=== PATIENT | male | born 1960 | race African-American/Black ===

== ENCOUNTER 2016-06-21 12:18 | Inpatient (IN) | payer BC ==
[2016-06-21 13:59] VITALS: BMI 24.3
--- NOTE | 2016-06-21 15:25 | HP ---
CIWA Score - CIWA Score Nausea/Vomitin-Mild Nausea/No Vomiting Muscle Tremors: 4-Moderate,w/Arms Extend Anxiety: 4-Mod. Anxious/Guarded Agitation: 4-Moderately Restless Paroxysmal Sweats: 3 Orientation: 0-Oriented Tacttile Disturbances: 0-None Auditory Disturbances: 0-None Visual Disturbances: 0-None Headache: 1-Very Mild CIWA-Ar Total Score: 17 Admission ROS S - HPI Chief Complaint: i need detox Allergies/Adverse Reactions: Allergies Allergy/AdvReac Type Severity Reaction Status Date / Time Fish Containing Products Allergy Severe Rash Verified 06/21/16 14:49 penicillin G Allergy Severe Rash Verified 06/21/16 14:49 History of Present Illness: pt is a 56yr old male with a history of alcohol and cocaine dependence seeking detox for treatment. Exam Limitations: No Limitations - Ebola screening Have you traveled outside of the country in the last 21 days: No Have you had contact with anyone from an Ebola affected area: No Have you been sick,other than usual withdrawal symptoms: No Do you have a fever: No - Review of Systems Constitutional: Diaphoresis, Night Sweats, Changes in sleep, Unintentional Wgt. Loss EENT: reports: Tearing Respiratory: reports: No Symptoms reported Cardiac: reports: No Symptoms Reported GI: reports: Nausea, Poor Appetite, Poor Fluid Intake, Vomiting, Indigestion : reports: No Symptoms Reported Musculoskeletal: reports: Back Pain Integumentary: reports: Flushing, Sweating Neuro: reports: Headache, Tingling, Tremors Endocrine: reports: Excessive Sweating, Flushing, Intolerance to Cold, Intolerance to Heat Hematology: reports: No Symptoms Reported Psychiatric: reports: Judgement Intact, Mood/Affect Appropiate, Orientated x3, Agitated, Anxious Other Systems: Reviewed and Negative Patient History - Patient Medical History Hx Anemia: No Hx Asthma: Yes Hx Chronic Obstructive Pulmonary Disease (COPD): No Hx Cancer: No Hx Cardiac Disorders: No Hx Congestive Heart Failure: No Hx Hypertension: Yes (no meds.) Hx Hypercholesterolemia: No Hx Pacemaker: No HX Cerebrovascular Accident: No (2007 right side stoke. ) Hx Seizures: Yes (Last seizure was in 2014) Hx Dementia: No Hx Diabetes: Yes (DM2) Hx Gastrointestinal Disorders: No Hx Liver Disease: No Hx Genitourinary Disorders: No Hx Sexually Transmitted Disorders: No Hx Renal Disease (ESRD): No Hx Thyroid Disease: No Hx Human Immunodeficiency Virus (HIV): Yes (HIV 1998.. last CD4 400) Hx Hepatitis C: No Hx Depression: Yes Hx Suicide Attempt: No (denies) Hx Bipolar Disorder: No Hx Schizophrenia: Yes - Patient Surgical History Past Surgical History: No Hx Neurologic Surgery: No Hx Cataract Extraction: No Hx Cardiac Surgery: No Hx Lung Surgery: No Hx Breast Surgery: No Hx Breast Biopsy: No Hx Abdominal Surgery: No Hx Appendectomy: No Hx Cholecystectomy: No Hx Genitourinary Surgery: No Hx Section: No Hx Orthopedic Surgery: No Other Surgical History: collar bone fracture 2007, no surgery Anesthesia Reaction: No - PPD History Previous Implant?: Yes Documented Results: Positive w/proof Implanted On Prior [facility] Admission?: Yes Date: 04/05/14 Results: 0 MM PPD to be Administered?: Yes - Reproductive History Patient is a Female of Child Bearing Age (11 -55 yrs old): No - Smoking Cessation Smoking history: Current every day smoker Have you smoked in the past 12 months: Yes Aproximately how many cigarettes per day: 40 Hx Chewing Tobacco Use: No Initiated information on smoking cessation: Yes 'Breaking Loose' booklet given: 06/21/16 - Substance & Tx. History Hx Alcohol Use: Yes Hx Substance Use: Yes Substance Use Type: Alcohol, Cocaine Hx Substance Use Treatment: Yes - Substances Abused Alcohol Route: Oral Frequency: Daily Amount used: 1 AND 1/2 PINTS VODKA Age of first use: 25 Date of Last Use: 06/20/16 Crack Route: Smoking Frequency: Daily Amount used: 5 BAGS Age of first use: 27 Date of Last Use: 06/20/16 Family Disease History - Family Disease History Family History: Denies Admission Physical Exam BHS - Vital Signs Vital Signs: Vital Signs - 24 hr 06/21/16 13:53 Temperature 97 F L Pulse Rate 69 Respiratory 20 Rate Blood Pressure 147/90 - Physical General Appearance: Yes: Appropriately Dressed, Moderate Distress, Tremorous, Irritable, Sweating, Anxious HEENTM: Yes: Hearing grossly Normal, Nasal Congestion, Rhinorrhea Respiratory: Yes: Lungs Clear, Normal Breath Sounds, No Respiratory Distress Neck: Yes: No masses,lesions,Nodules Breast: Yes: Within Normal Limits Cardiology: Yes: Regular Rhythm, Regular Rate, S1, S2 Abdominal: Yes: Normal Bowel Sounds, Non Tender, Soft Genitourinary: Yes: Within Normal Limits Back: Yes: Normal Inspection Musculoskeletal: Yes: full range of Motion, Back pain, Joint Stiffness Extremities: Yes: Normal Capillary Refill, Normal Inspection, Non-Tender, Tremors Neurological: Yes: Fully Oriented, Alert, Normal Response Integumentary: Yes: Normal Color, Diaphoresis Lymphatic: Yes: Within Normal Limits - Diagnostic (1) Seizure disorder Current Visit: Yes Status: Chronic (2) Asthma Current Visit: Yes Status: Chronic Qualifiers: Asthma severity: mild intermittent Asthma complication type: uncomplicated Qualified Code(s): J45.20 - Mild intermittent asthma, uncomplicated (3) Cocaine dependence Current Visit: Yes Status: Chronic Qualifiers: Substance use status: uncomplicated Qualified Code(s): F14.20 - Cocaine dependence, uncomplicated (4) Diabetes type 2, uncontrolled Current Visit: Yes Status: Chronic Qualifiers: Diabetes mellitus complication status: without complication Diabetes mellitus snf insulin use: with adjunct faculty for medical terminology use Qualified Code(s): E11.65 - Type 2 diabetes mellitus with hyperglycemia; Z79.4 - intermodal customer service (current ) use of insulin (5) HIV disease Current Visit: Yes Status: Chronic Comment: since 1997. last CD4 count 400 (6) Hypertension Current Visit: Yes Status: Chronic Qualifiers: Hypertension type: essential hypertension Qualified Code(s): I10 - Essential (primary) hypertension Comment: non compliant (7) Nicotine dependence Current Visit: Yes Status: Chronic Qualifiers: Nicotine product type: cigarettes Substance use status: uncomplicated Qualified Code(s): F17.210 - Nicotine dependence, cigarettes, uncomplicated (8) Alcohol dependence with uncomplicated withdrawal Current Visit: Yes Status: Chronic Cleared for Admission S - Detox or Rehab [facility] Level of Care: Medically Managed Detox Regimen/Protocol: Librium [facility] Breath Alcohol Content Breath Alcohol Content: 0 Urine Drug Screen - Results Drug Screen Negative: Yes Urine Drug Screen Results: TOMAS-Cocaine
[2016-06-21] MEDS ORDERED: NICOTINE POLACRILEX 4 MG GUM BC PRN (15:36)
[2016-06-21] MEDS ORDERED: ACETAMINOPHEN 325 MG TABLET (FP) PO PRN (15:36)
[2016-06-21] MEDS ORDERED: MAGNESIUM CITRATE 300 ML BOTTLE PO PRN (15:36)
[2016-06-21] MEDS ORDERED: hydrOXYzine PAMOATE 50 MG CAPSULE (FP) PO PRN (15:36)
[2016-06-21] MEDS ORDERED: guaiFENesin/D-METHORPHAN HB 10 ML UNIT-DOSE CUPS PO PRN (15:36)
[2016-06-21] MEDS ORDERED: chlordiazePOXIDE HCL 25 MG CAPSULE PO PRN (15:36)
[2016-06-21] MEDS ORDERED: MAG HYDROX/AL HYDROX/SIMETH 30 ML UNIT-DOSE CUP PO PRN (15:36)
[2016-06-21] MEDS ORDERED: P-EPHED 60MG/TRIPROLIDI 2.5MG TABLET PO PRN (15:36)
[2016-06-21] MEDS ORDERED: MAGNESIUM HYDROX 2400MG/30ML ORAL SUSPENSION 30 ML CUP PO PRN (15:36)
[2016-06-21] MEDS ORDERED: MENTHOL/PHENOL 1 EACH UD MM PRN (15:36)
[2016-06-21] MEDS ORDERED: IBUPROFEN 400 MG TABLET (FP) PO PRN (15:36)
[2016-06-21] MEDS ORDERED: diphenhydrAMINE HCL 50 MG CAPSULE PO PRN (15:36)
[2016-06-21] MEDS ORDERED: ALBUTEROL SO4 6.7 GM HFA INHALER IH PRN (15:40)
[2016-06-21] MEDS ORDERED: chlordiazePOXIDE HCL 25 MG CAPSULE PO ONE (15:44)
[2016-06-21] MEDS: chlordiazePOXIDE HCL 25 MG CAPSULE PO SCH ×2 (16:57→22:26)
[2016-06-21] MEDS: INSULIN SLIDING SCALE (NOVOLOG) 1 VIAL SQ SCH (16:58)
--- NOTE | 2016-06-21 21:43 | PN ---
S Progress Note Note: 56 YEARS OLD MALE WITH INSULIN DEPENDENT DIABETES II REPORTS TAKING LANTUS 51 UNITS HS DAILY, LAST DOSE 06/17/16 HS FINGER STICK 141 HOLD INSULIN 51 UNITS FOR POSSIBLE REDUCED UNIT CONTINUE DETOX
[2016-06-21] MEDS: INSULIN DETEMIR 100 UNITS/ML MDV SQ SCH (22:00)
[2016-06-21] MEDS: THIAMINE HCL 100 MG TABLET (FP) PO SCH (22:25)
[2016-06-21] MEDS: levETIRAcetam 500 MG TABLET (FP) PO SCH (22:26)
[2016-06-22] MEDS: chlordiazePOXIDE HCL 25 MG CAPSULE PO SCH ×4 (05:42→22:11)
[2016-06-22] MEDS: EMTRICITABINE 200MG/TENOFOVIR 300MG PO SCH (07:45)
[2016-06-22] MEDS: ATAZANAVIR SO4 300 MG CAPSULE PO SCH (07:45)
[2016-06-22] MEDS: RITONAVIR 100 MG TABLET PO SCH (07:45)
[2016-06-22] MEDS: INSULIN SLIDING SCALE (NOVOLOG) 1 VIAL SQ SCH ×3 (07:45→17:28)
[2016-06-22 10:07] LABS: MCH 32.2 pg (25.7-33.7); MCHC 33.2 g/dl (32.0-35.9); MEAN CELL VOLUME 97.1 fl (80-96); MEAN PLT VOLUME 8.9 fl (7.5-11.1); PLATELET COUNT 191 K/MM3 (134-434); RDW 14.8 % (11.9-15.9); WHITE BLOOD COUNT 3.5 K/mm3 (4.0-10.0)
--- NOTE | 2016-06-22 10:13 | PN ---
S CIWA - CIWA Score Nausea/Vomitin-No Nausea/No Vomiting Muscle Tremors: 4-Moderate,w/Arms Extend Anxiety: 4-Mod. Anxious/Guarded Agitation: 4-Moderately Restless Paroxysmal Sweats: 1-Minimal Palms Moist Orientation: 0-Oriented Tacttile Disturbances: 3-Moderate Itch/Numb/Burn Auditory Disturbances: 0-None Visual Disturbances: 0-None Headache: 0-None Present CIWA-Ar Total Score: 16 BHS Progress Note (SOAP) Subjective: ANXIETY,SWEATS,TREMORS, INTERMITTENT SLEEP,FATIGUE. Objective: 06/22/16 10:13 Vital Signs Temperature 96.3 F L 06/22/16 09:46 Pulse Rate 75 06/22/16 09:46 Respiratory Rate 18 06/22/16 09:46 Blood Pressure 124/76 06/22/16 09:46 O2 Sat by Pulse Oximetry (%) Laboratory Last Values WBC 3.5 K/mm3 (4.0-10.0) L D 06/22/16 05:50 RBC 3.97 M/mm3 (4.00-5.60) L 06/22/16 05:50 Hgb 12.8 GM/dL (11.7-16.9) 06/22/16 05:50 Hct 38.5 % (35.4-49) 06/22/16 05:50 MCV 97.1 fl (80-96) H 06/22/16 05:50 MCHC 33.2 g/dl (32.0-35.9) 06/22/16 05:50 RDW 14.8 % (11.9-15.9) 06/22/16 05:50 Plt Count 191 K/MM3 (134-434) 06/22/16 05:50 MPV 8.9 fl (7.5-11.1) D 06/22/16 05:50 POC Glucometer 108 UNITS (()) 06/22/16 05:42 Assessment: 06/22/16 10:13 WITHDRAWAL SX Plan: CONTINUE DETOX
[2016-06-22] MEDS: levETIRAcetam 500 MG TABLET (FP) PO SCH ×2 (10:15→22:11)
[2016-06-22] MEDS: ASPIRIN 81 MG CHEWABLE TABLETS PO SCH (10:15)
[2016-06-22] MEDS: PRENATAL VITAMINS W/ FOLIC ACID TABLET (FP) PO SCH (10:15)
[2016-06-22] MEDS: NICOTINE 21 MG/24 HOURS TOPICAL PATCH TD SCH (10:16)
[2016-06-22 10:57] LABS: ALBUMIN 3.2 g/dl (3.4-5.0); ALK PHOS 125 U/L (45-117); ANION GAP 7 (8-16); BILIRUBIN,TOTAL 0.3 mg/dL (0.2-1.0); CALCIUM 8.1 mg/dL (8.5-10.1); CO2 24 mmol/L (21-32); CREATININE 0.7 mg/dL (0.7-1.3); GLUCOSE,RANDOM 121 mg/dL (74-106); SGOT/AST 45 U/L (15-37); SGPT/ALT 41 U/L (12-78); TOT PROT 9.5 g/dl (6.4-8.2)
--- NOTE | 2016-06-22 12:53 | EKG ---
Test Reason : Blood Pressure : / mmHG Vent. Rate : 065 BPM Atrial Rate : 065 BPM P-R Int : 190 ms QRS Dur : 084 ms QT Int : 412 ms P-R-T Axes : 056 046 046 degrees QTc Int : 428 ms NORMAL SINUS RHYTHM NORMAL ECG NO PREVIOUS ECGS AVAILABLE Confirmed by NATALI GARCÍA MD ([id number]) on 06/22/2016 12:53:25 PM Referred By: Confirmed By:NATALI GARCÍA MD
--- NOTE | 2016-06-22 14:36 | CONSULT ---
[facility] Psychiatric Consult - Data Date of interview: 06/22/16 Admission source: [facility] Identifying data: Readmission to [facility] for Pedro Gilliam who is a 56 y/o AA male seeking detox treatment on for alcohol and cocaine (crack) dependence.He is single without children,domiciled (lives in a [place] setting), unemployed and supported on SSI benefits. Substance Abuse History: - Smoking Cessation. Smoking history: Current every day smoker. Have you smoked in the past 12 months: Yes. Aproximately how many cigarettes per day: 40. Hx Chewing Tobacco Use: No. Initiated information on smoking cessation: Yes. 'Breaking Loose' booklet given: 06/21/16. - Substance & Tx. History. Hx Alcohol Use: Yes. Hx Substance Use: Yes. Substance Use Type : Alcohol, Cocaine. Hx Substance Use Treatment: Yes. - Substances Abused. Alcohol. Route: Oral. Frequency: Daily. Amount used: 1 AND 1/2 PINTS VODKA. Age of first use: 25. Date of Last Use: 06/20/16. Crack. Route: Smoking. Frequency: Daily. Amount used: 5 BAGS. Age of first use: 27. Date of Last Use : 06/20/16. Confirmed by patient. Medical History: Significant for HIV infection since 2001,bronchial asthma, seizure disorder (drug-induced),insulin dependent diabetes mellitus, hypertension.Noted history of CVA with right sided weakness in 2012. Psychiatric History: History of a psychiatric admission to [facility] (2006).Diagnosed with schizophrenia and treated with a combination of risperdal 2 mg po hs+depakote 500 mg po bid+cogentin 2 mg po hs as per self- report (in the past).History of chronic non-adherence medications.Mr Gilliam has no recall of date of last medication intake.He is,however,willing to restart these medications in this hospital course.He reports one suicide attempt,in 2001 ,via self-mutilation (wrist-cutting) in the context of an alcohol/drug intoxication.Mr Gilliam reports that his outpatient psychiatric services (sees Dr Perry for medication management) [facility] Physical/Sexual Abuse/Trauma History: Patient denies. Mental Status Exam - Mental Status Exam Alert and Oriented to: Time, Place, Person Cognitive Function: Grossly Intact Patient Appearance: Unkempt, Disheveled Mood: Withdrawn, Anxious Affect: Constricted Patient Behavior: Fatigued, Talkative, Appropriate, Cooperative Speech Pattern: Clear Voice Loudness: Normal Thought Process: Goal Oriented Thought Disorder: Not Present Hallucinations: Denies Suicidal Ideation: Denies Homicidal Ideation: Denies Insight/Judgement: Poor Sleep: Fair Appetite: Good Muscle strength/Tone: Normal Gait/Station: Other (hesitant) Psychiatric Findings - Problem List ([place] 1, 2,3) (1) Alcohol dependence with uncomplicated withdrawal Current Visit: Yes Status: Acute (2) Cocaine dependence Current Visit: Yes Status: Acute Qualifiers: Substance use status: uncomplicated Qualified Code(s): F14.20 - Cocaine dependence, uncomplicated (3) Nicotine dependence Current Visit: Yes Status: Acute Qualifiers: Nicotine product type: cigarettes Substance use status: uncomplicated Qualified Code(s): F17.210 - Nicotine dependence, cigarettes, uncomplicated (4) Schizophrenia Current Visit: Yes Status: Chronic Comment: By history. (5) Asthma Current Visit: Yes Status: Chronic Qualifiers: Asthma severity: mild intermittent Asthma complication type: uncomplicated Qualified Code(s): J45.20 - Mild intermittent asthma, uncomplicated (6) Diabetes type 2, uncontrolled Current Visit: Yes Status: Chronic Qualifiers: Diabetes mellitus complication status: without complication Diabetes mellitus fpc insulin use: with fpc use Qualified Code(s): E11.65 - Type 2 diabetes mellitus with hyperglycemia (7) HIV disease Current Visit: Yes Status: Chronic Comment: since 1997. last CD4 count 400 (8) Hypertension Current Visit: Yes Status: Chronic Qualifiers: Hypertension type: essential hypertension Qualified Code(s): I10 - Essential (primary) hypertension Comment: non compliant (9) Seizure disorder Current Visit: Yes Status: Chronic - Initial Treatment Plan Initial Treatment Plan: Psychoeducation.Detoxification.Medications :seroquel 100 mg po hs + cogentin 1 mg po hs.No valproate found in the review of pharmacy claims (consistent with filled scripts for seroquel and cogentin as of 06/01/16 from [facility]).Side effects/benefits discussed with the patient.He is in agreement with this care plan.Observation.Patient declines scripts at discharge (he indicates that he has enough supply of medications at home to last until next refill from his psychiatrist).Observation.
[2016-06-22] MEDS ORDERED: INSULIN (NOVOLOG) ASPART 100 UNITS/ML 10ML VIAL ONE (16:52)
[2016-06-22] MEDS: QUEtiapine FUMARATE 100 MG TABLET (FP) PO SCH (22:11)
[2016-06-22] MEDS: LOPERAMIDE HCL 2 MG CAPSULE PO PRN (22:11)
[2016-06-22] MEDS: THIAMINE HCL 100 MG TABLET (FP) PO SCH (22:13)
[2016-06-23] MEDS: chlordiazePOXIDE HCL 25 MG CAPSULE PO SCH ×2 (05:54→10:31)
[2016-06-23] MEDS: LOPERAMIDE HCL 2 MG CAPSULE PO PRN (05:58)
[2016-06-23] MEDS: INSULIN SLIDING SCALE (NOVOLOG) 1 VIAL SQ SCH ×3 (07:01→17:21)
[2016-06-23] MEDS: RITONAVIR 100 MG TABLET PO SCH (07:53)
[2016-06-23] MEDS: EMTRICITABINE 200MG/TENOFOVIR 300MG PO SCH (07:54)
[2016-06-23] MEDS: ATAZANAVIR SO4 300 MG CAPSULE PO SCH (07:54)
--- NOTE | 2016-06-23 09:34 | PN ---
[facility] CIWA - CIWA Score Nausea/Vomitin-No Nausea/No Vomiting Muscle Tremors: 4-Moderate,w/Arms Extend Anxiety: 4-Mod. Anxious/Guarded Agitation: 4-Moderately Restless Paroxysmal Sweats: 1-Minimal Palms Moist Orientation: 0-Oriented Tacttile Disturbances: 3-Moderate Itch/Numb/Burn Auditory Disturbances: 0-None Visual Disturbances: 0-None Headache: 0-None Present CIWA-Ar Total Score: 16 S Progress Note (SOAP) Subjective: ANXIETY,SWEATS,SLUGGISH. ALERT O X 3. OOB WITH STEADY GAIT. Objective: 06/23/16 09:34 Vital Signs Temperature 96.8 F L 06/23/16 06:49 Pulse Rate 92 H 06/23/16 06:49 Respiratory Rate 18 06/23/16 06:49 Blood Pressure 85/58 06/23/16 06:49 O2 Sat by Pulse Oximetry (%) Laboratory Last Values WBC 3.5 K/mm3 (4.0-10.0) L D 06/22/16 05:50 RBC 3.97 M/mm3 (4.00-5.60) L 06/22/16 05:50 Hgb 12.8 GM/dL (11.7-16.9) 06/22/16 05:50 Hct 38.5 % (35.4-49) 06/22/16 05:50 MCV 97.1 fl (80-96) H 06/22/16 05:50 MCHC 33.2 g/dl (32.0-35.9) 06/22/16 05:50 RDW 14.8 % (11.9-15.9) 06/22/16 05:50 Plt Count 191 K/MM3 (134-434) 06/22/16 05:50 MPV 8.9 fl (7.5-11.1) D 06/22/16 05:50 Sodium 137 mmol/L (136-145) 06/22/16 05:50 Potassium 4.2 mmol/L (3.5-5.1) D 06/22/16 05:50 Chloride 106 mmol/L (98-107) 06/22/16 05:50 Carbon Dioxide 24 mmol/L (21-32) 06/22/16 05:50 Anion Gap 7 (8-16) L 06/22/16 05:50 BUN 12 mg/dL (7-18) 06/22/16 05:50 Creatinine 0.7 mg/dL (0.7-1.3) D 06/22/16 05:50 Creat Clearance w eGFR > 60 (>60) 06/22/16 05:50 POC Glucometer 128 UNITS (()) 06/23/16 05:56 Random Glucose 121 mg/dL (74-106) H D 06/22/16 05:50 Calcium 8.1 mg/dL (8.5-10.1) L 06/22/16 05:50 Total Bilirubin 0.3 mg/dL (0.2-1.0) D 06/22/16 05:50 AST 45 U/L (15-37) H D 06/22/16 05:50 ALT 41 U/L (12-78) D 06/22/16 05:50 Alkaline Phosphatase 125 U/L (45-117) H D 06/22/16 05:50 Total Protein 9.5 g/dl (6.4-8.2) H 06/22/16 05:50 Albumin 3.2 g/dl (3.4-5.0) L 06/22/16 05:50 RPR Titer Nonreactive (NONREACTIVE) 06/22/16 05:50 Assessment: 06/23/16 09:34 WITHDRAWAL SX Plan: CNTINUE DETOX INCREASE PO FLUIDS
[2016-06-23] MEDS: PRENATAL VITAMINS W/ FOLIC ACID TABLET (FP) PO SCH (10:31)
[2016-06-23] MEDS: levETIRAcetam 500 MG TABLET (FP) PO SCH ×2 (10:31→22:21)
[2016-06-23] MEDS: ASPIRIN 81 MG CHEWABLE TABLETS PO SCH (10:31)
[2016-06-23] MEDS: NICOTINE 21 MG/24 HOURS TOPICAL PATCH TD SCH (10:31)
[2016-06-23] MEDS ORDERED: INSULIN (NOVOLOG) ASPART 100 UNITS/ML 10ML VIAL ONE (16:47)
[2016-06-23] MEDS: chlordiazePOXIDE 5 MG CAPSULE PO SCH ×2 (17:18→22:21)
[2016-06-23] MEDS: INSULIN DETEMIR 100 UNITS/ML MDV SQ SCH (21:36)
[2016-06-23] MEDS: THIAMINE HCL 100 MG TABLET (FP) PO SCH (22:20)
[2016-06-23] MEDS: QUEtiapine FUMARATE 100 MG TABLET (FP) PO SCH (22:21)
[2016-06-24] MEDS: chlordiazePOXIDE 5 MG CAPSULE PO SCH ×2 (05:37→10:49)
[2016-06-24] MEDS: INSULIN SLIDING SCALE (NOVOLOG) 1 VIAL SQ SCH ×3 (07:36→18:19)
[2016-06-24] MEDS ORDERED: INSULIN (NOVOLOG) ASPART 100 UNITS/ML 10ML VIAL ONE ×2 (07:38→11:21)
[2016-06-24] MEDS: ATAZANAVIR SO4 300 MG CAPSULE PO SCH (07:44)
[2016-06-24] MEDS: EMTRICITABINE 200MG/TENOFOVIR 300MG PO SCH (07:44)
[2016-06-24] MEDS: RITONAVIR 100 MG TABLET PO SCH (07:44)
[2016-06-24] MEDS: levETIRAcetam 500 MG TABLET (FP) PO SCH (10:49)
[2016-06-24] MEDS: NICOTINE 21 MG/24 HOURS TOPICAL PATCH TD SCH (10:49)
[2016-06-24] MEDS: PRENATAL VITAMINS W/ FOLIC ACID TABLET (FP) PO SCH (10:49)
[2016-06-24] MEDS: ASPIRIN 81 MG CHEWABLE TABLETS PO SCH (10:49)
--- NOTE | 2016-06-24 13:03 | PN ---
BHS Progress Note (SOAP) Subjective: ANXIETY, Objective: 06/24/16 13:14 Vital Signs Temperature 96.6 F L 06/24/16 10:41 Pulse Rate 87 06/24/16 10:41 Respiratory Rate 18 06/24/16 10:41 Blood Pressure 102/63 06/24/16 10:41 O2 Sat by Pulse Oximetry (%) Laboratory Last Values WBC 3.5 K/mm3 (4.0-10.0) L D 06/22/16 05:50 RBC 3.97 M/mm3 (4.00-5.60) L 06/22/16 05:50 Hgb 12.8 GM/dL (11.7-16.9) 06/22/16 05:50 Hct 38.5 % (35.4-49) 06/22/16 05:50 MCV 97.1 fl (80-96) H 06/22/16 05:50 MCHC 33.2 g/dl (32.0-35.9) 06/22/16 05:50 RDW 14.8 % (11.9-15.9) 06/22/16 05:50 Plt Count 191 K/MM3 (134-434) 06/22/16 05:50 MPV 8.9 fl (7.5-11.1) D 06/22/16 05:50 Sodium 137 mmol/L (136-145) 06/22/16 05:50 Potassium 4.2 mmol/L (3.5-5.1) D 06/22/16 05:50 Chloride 106 mmol/L (98-107) 06/22/16 05:50 Carbon Dioxide 24 mmol/L (21-32) 06/22/16 05:50 Anion Gap 7 (8-16) L 06/22/16 05:50 BUN 12 mg/dL (7-18) 06/22/16 05:50 Creatinine 0.7 mg/dL (0.7-1.3) D 06/22/16 05:50 Creat Clearance w eGFR > 60 (>60) 06/22/16 05:50 POC Glucometer 185 UNITS (()) 06/24/16 11:18 Random Glucose 121 mg/dL (74-106) H D 06/22/16 05:50 Calcium 8.1 mg/dL (8.5-10.1) L 06/22/16 05:50 Total Bilirubin 0.3 mg/dL (0.2-1.0) D 06/22/16 05:50 AST 45 U/L (15-37) H D 06/22/16 05:50 ALT 41 U/L (12-78) D 06/22/16 05:50 Alkaline Phosphatase 125 U/L (45-117) H D 06/22/16 05:50 Total Protein 9.5 g/dl (6.4-8.2) H 06/22/16 05:50 Albumin 3.2 g/dl (3.4-5.0) L 06/22/16 05:50 RPR Titer Nonreactive (NONREACTIVE) 06/22/16 05:50 Assessment: 06/24/16 13:14 WITHDRAWAL SX Plan: CONTINUE DETOX
[2016-06-24 14:25] VITALS: BP 123/70; PULSE 81; TEMP 97
--- NOTE | 2016-06-24 15:49 | DS ---
[facility] Detox Discharge Summary Admission Date: 06/21/16 Discharge Date: 06/24/16 - History Present History: Alcohol Dependence, Cocaine Dependence Additional Comments: NONE Pertinent Past History: ASTHMA HIV+ HTN SEIZURE DISORDER SCHIZOPHRENIA - Physical Exam Results Vital Signs: Vital Signs Temperature 97.0 F L 06/24/16 14:24 Pulse Rate 81 06/24/16 14:24 Respiratory Rate 18 06/24/16 14:24 Blood Pressure 123/70 06/24/16 14:24 O2 Sat by Pulse Oximetry (%) Pertinent Admission Physical Exam Findings: WITHDRAWAL SX - Treatment Hospital Course: Detox Protocol Followed, Detoxed Safely, Responded well, Discharged Condition Good - Medication Discharge Medications: Ambulatory Orders Albuterol Sulfate Inhaler - [Ventolin HFA Inhaler -] 2 puff IH Q4H PRN #1 inhaler 06/02/15 Aspirin [ASA -] 81 mg PO DAILY #30 tab.chew 06/02/15 Atazanavir [Reyataz -] 300 mg PO DAILY #30 capsule 06/02/15 Emtricitabine/Tenofovir [Truvada -] 1 tab PO DAILY #30 tablet 06/02/15 Ritonavir [Norvir -] 100 mg PO DAILY #30 tab 06/02/15 Insulin Glargine,Hum.rec.anlog [Lantus Solostar PEN -] 51 units SQ HS 06/21/16 Levetiracetam [Keppra -] 500 mg PO BID 06/21/16 Quetiapine Fumarate [Seroquel -] 100 mg PO HS 06/21/16 - Diagnosis (1) Alcohol dependence with uncomplicated withdrawal Status: Acute (2) Cocaine dependence Status: Acute Qualifiers: Substance use status: uncomplicated Qualified Code(s): F14.20 - Cocaine dependence, uncomplicated (3) Nicotine dependence Status: Acute Qualifiers: Nicotine product type: cigarettes Substance use status: uncomplicated Qualified Code(s): F17.210 - Nicotine dependence, cigarettes, uncomplicated (4) Asthma Status: Chronic Qualifiers: Asthma severity: mild intermittent Asthma complication type: uncomplicated Qualified Code(s): J45.20 - Mild intermittent asthma, uncomplicated (5) Diabetes type 2, uncontrolled Status: Chronic Qualifiers: Diabetes mellitus complication status: without complication Diabetes mellitus fpc insulin use: with termite treater use Qualified Code(s): E11.65 - Type 2 diabetes mellitus with hyperglycemia (6) HIV disease Status: Chronic (7) Hypertension Status: Chronic Qualifiers: Hypertension type: essential hypertension Qualified Code(s): I10 - Essential (primary) hypertension (8) Schizophrenia Status: Chronic (9) Seizure disorder Status: Chronic - AMA Did Patient Leave Against Medical Advice: No
[2016-06-24] MEDS ORDERED: chlordiazePOXIDE HCL 10 MG CAPSULE PO SCH (17:00)
== END 2016-06-24 17:57 | disposition home or self-care (01) | DRG 774 ==
LOC: YASAS 12:18 → Y3N 15:36
PROVIDERS: ADMIT Internal Medicine; ATTEND Internal Medicine
PROC: HZ2ZZZZ Detoxification Services for Substance Abuse Treatment (ICD-10-PCS; principal; 2016-06-21)
DX: F10.230 Alcohol dependence with withdrawal, uncomplicated (principal); F14.20 Cocaine dependence, uncomplicated; F17.210 Nicotine dependence, cigarettes, uncomplicated; F20.9 Schizophrenia, unspecified; Z21 Asymptomatic human immunodeficiency virus [HIV] infection status; J45.20 Mild intermittent asthma, uncomplicated; I10 Essential (primary) hypertension; G40.909 Epilepsy, unspecified, not intractable, without status epilepticus; E11.65 Type 2 diabetes mellitus with hyperglycemia; Z79.4 Long term (current) use of insulin; Z86.73 Personal history of transient ischemic attack (TIA), and cerebral infarction without residual deficits
CPT/HCPCS: 36415; 80053; 85027; 86593; 93005; 93010